=== PATIENT | female | born 1960 | race Caucasian/White ===

== ENCOUNTER 2019-06-05 07:01 | Inpatient (IN) ==
[2019-05-31 13:03] LABS: Appearance,Urine CLEAR; Bacteria,Urine FEW /hpf (0); Bilirubin,Urine NEG (NEG); Color,Urine YELLOW; Culture Indicated,Urine YES; Glucose,Urine (UA) NEGATIVE (NEG); Ketones,Urine NEG (NEG); Leukocyte Esterase,Urine 25 /uL (NEG); Mucus,Urine FEW /hpf (0); Nitrate,Urine NEG (NEG); Protein,Urine NEG (NEG); Specific Gravity,Urine 1.008 (1.000-1.035); Urine Blood NEG mg/dL (<0.03); Urine Broad Cast 1 /lpf (0); Urine Hyaline Cast 12 /lpf (0-2); Urine RBC 1 /hpf (0-1); Urine Squamous Epithelial Cell < 1 /hpf (0-4); Urine Transitional Epi Cells < 1 /hpf (0-2); Urine WBC 3 /hpf (0-4); Urobilinogen,Urine NEG (NEG)
[2019-05-31 16:46] LABS: Basophils # (Auto) 0.03 K/mcL (0.00-0.30); Basophils % (Auto) 0.3 % (0.0-2.0); Eosinophils # (Auto) 0.09 K/mcL (0.00-0.70); Eosinophils % (Auto) 0.9 % (0.0-7.0); Granulocytes % (Auto) 65.5 % (38.0-78.0); Hematocrit 43.7 % (34.1-44.9); Hemoglobin 14.6 g/dL (11.2-15.7); Lymphocytes # (Auto) 2.67 K/mcL (1.50-4.80); Lymphocytes % (Auto) 26.6 % (15.5-49.0); Mean Cell Volume 90.3 fL (80.0-100.0); Mean Corpuscular HGB Conc 33.4 g/dL (31.0-36.0); Mean Platelet Volume 9.7 fL (7.4-10.4); Monocytes # (Auto) 0.67 K/mcL (0.10-0.90); Monocytes % (Auto) 6.7 % (1.0-12.0); Platelet Count 336 K/mcL (140-440); RBC 4.84 M/mcL (3.59-5.38); Red Cell Distribution Width 13.6 % (11.5-14.5); WBC 10.1 K/mcL (4.50-11.00)
[2019-05-31 16:54] LABS: Prothrombin Time 12.8 sec (11.9-14.5)
[2019-05-31 17:01] LABS: Blood Urea Nitrogen 19 mg/dl (6-20); Calcium 10.4 mg/dl (8.6-10.4); Carbon Dioxide 25 mmol/L (22-30); Chloride 94 mmol/L (96-108); Glomerular Filtration Rate 70; Glucose 133 mg/dL (70-105)
[2019-05-31 17:42] LABS: Estimated Average Glucose(eAG) 143 mg/dL; Hemoglobin A1C 6.6 % HGB (4.0-6.0)
[~2019-06-05 07:01] MED LIST: CELECOXIB 200 MG CAPSULE PO SCH; GABAPENTIN 300 MG CAPSULE PO SCH; IPRATROPIUM/ALBUTEROL 3 ML AMPUL.NEB NEB PRN; SCOPOLAMINE 1 PATCH PATCH TOPICAL PRN; ceFAZolin 2 GM in DEXTROSE 5% IN WATER 50 ML IV SCH; oxyCODONE 10 MG TAB.ER.12H PO SCH
[2019-06-05] MEDS ORDERED: GENTAMICIN SULFATE 800 MG/20 ML VIAL IR ONE (07:11)
[2019-06-05] MEDS ORDERED: DEXAMETHASONE 10 MG/ML VIAL IV ONE (09:35)
[2019-06-05] MEDS ORDERED: PROPOFOL 200 MG/20 ML VIAL IV ONE (09:35)
[2019-06-05] MEDS ORDERED: ROPIVACAINE HCL/PF 30 ML VIAL IJ ONE (09:35)
[2019-06-05] MEDS ORDERED: fentaNYL 100 MCG/2 ML VIAL IV ONE (09:35)
[2019-06-05] MEDS ORDERED: ePHEDrine 50 MG/ML AMPUL IV ONE (09:35)
[2019-06-05] MEDS ORDERED: SUCCINYLCHOLINE 20 MG/ML ML IV ONE (09:35)
[2019-06-05] MEDS ORDERED: MIDAZOLAM 2 MG/2 ML VIAL IV ONE (09:35)
[2019-06-05] MEDS ORDERED: TRANEXAMIC ACID 1,000 MG/10 ML VIAL IV ONE (09:35)
[2019-06-05] MEDS ORDERED: LIDOCAINE HCL/PF 100 MG/5 ML SYRINGE IV ONE (09:35)
[2019-06-05] MEDS ORDERED: ONDANSETRON 4 MG/2 ML VIAL IV ONE (09:35)
--- NOTE | 2019-06-05 11:06 | Brief Operative Note ---
Date of procedure: 06/05/19 Pre-op diagnosis: left hip osteoarthritis Post-op diagnosis: same Procedure: left total knee arthroplasty Grafts/Implants: Yes Anesthesia: GETA, regional Complications: none Surgeon: Landon Devi Clicking Machine Operator: Emma Flores Estimated blood loss (cc): 200 Specimens Removed/Pathology: none sent Condition: stable Disposition: PACU
[2019-06-05] MEDS ORDERED: METOLAZONE 2.5 MG TABLET PO PRN (11:07)
[2019-06-05] MEDS ORDERED: TORSEMIDE 10 MG TABLET PO PRN (11:07)
[2019-06-05] MEDS ORDERED: POTASSIUM CHLORIDE 20 MEQ TABLET PO PRN (11:07)
--- NOTE | 2019-06-05 11:07 | Discharge Summary ---
Ortho Discharge - [facility] - Patient Instructions Diet: Regular Diet Activity: ambulate with assistive device, weight bearing as tolerated Total Hip Protocol: Follow activity instructions as provided by Physical Therapy. Dressing Care: May shower in 2 days - Follow Up Plan Disposition: Xfer SNF Prognosis: Good Rehab Potential: Good I certify that the patient requires SNF services: Yes Overall status at discharge: patient is progressing back to baseline
[2019-06-05] MEDS ORDERED: POLYETHYLENE GLYCOL 3350 17 GM PACKET PO PRN (11:08)
[2019-06-05] MEDS ORDERED: BENZOCAINE/MENTHOL 1 LOZENGE PO PRN ×2 (11:08→11:19)
[2019-06-05] MEDS ORDERED: TRANEXAMIC ACID 1,000 MG/10 ML VIAL IV SCH (11:08)
[2019-06-05] MEDS ORDERED: FLEETS ADULT ENEMA PR PRN (11:08)
[2019-06-05] MEDS ORDERED: ACETAMINOPHEN 325 MG TABLET PO PRN (11:08)
[2019-06-05] MEDS ORDERED: BISACODYL 10 MG SUPP.RECT PR PRN (11:08)
[2019-06-05] MEDS ORDERED: ONDANSETRON 4 MG ODT TABLET SL PRN (11:08)
[2019-06-05] MEDS ORDERED: ONDANSETRON 4 MG/2 ML VIAL IV PRN ×2 (11:08→11:19)
[2019-06-05] MEDS ORDERED: MAGNESIUM HYDROXIDE 30 ML ORAL.SUSP PO PRN (11:08)
[2019-06-05] MEDS ORDERED: LABETALOL 5 MG/ML ML IV PRN (11:19)
[2019-06-05] MEDS ORDERED: NALOXONE HCL 0.4 MG/ML VIAL IV PRN (11:19)
[2019-06-05] MEDS ORDERED: FLUMAZENIL 0.1 MG/ML ML IV PRN (11:19)
[2019-06-05] MEDS ORDERED: METHOCARBAMOL 1,000 MG/10 ML VIAL IV PRN (11:19)
[2019-06-05] MEDS ORDERED: IPRATROPIUM/ALBUTEROL 3 ML AMPUL.NEB NEB PRN (11:19)
[2019-06-05] MEDS ORDERED: LACTATED RINGERS 250 ML IV PRN (11:19)
[2019-06-05] MEDS ORDERED: ACETAMINOPHEN 1,000 MG/100 ML BOTTLE IV ONE (11:19)
[2019-06-05] MEDS ORDERED: METOPROLOL TARTRATE 5 MG/5 ML VIAL IV PRN (11:19)
[2019-06-05] MEDS ORDERED: LACTATED RINGERS 1,000 ML IV SCH (11:30)
--- NOTE | 2019-06-05 11:40 | Operative Note ---
DATE OF OPERATION: 06/05/2019 PREOPERATIVE DIAGNOSIS: Degenerative joint disease, left hip. POSTOPERATIVE DIAGNOSIS: Degenerative joint disease, left hip. PROCEDURE: Left total hip arthroplasty. SURGEON: Kana Devi M.D. ELECTRONIC INTELLIGENCE OFFICER SURGEON: Adelaida Russo PA-C. The PA's assistance was required for the safe and efficient completion of the entire case. This provider's expertise and technical skill were required throughout the case. The PA assisted with preoperative coordination, intraoperative retraction, wound closure, dressing and splint application, as well as postoperative documentation and care coordination. ANESTHESIA: Spinal with LMA assist. ESTIMATED BLOOD LOSS: 200 mL. COMPLICATIONS: None noted. SPECIMENS REMOVED: None. DRAINS: None. IMPLANTS: DePuy [place] Hole Eliminator PS; DePuy Bryan Gription acetabular shell 52 mm diameter; DePuy Biolox delta ceramic femoral head +8.5, 36 mm diameter; DePuy femoral stem Actis Duofix hip prosthesis cementless size 4, standard collar; DePuy Bryan Altrx polyethylene acetabular liner, neutral, 36 x 52. INDICATIONS: The patient has had a longstanding history of worsening pain in the hip that has failed conservative treatment. Radiographs have confirmed advanced degenerative joint disease. After a long discussion about treatment options, the patient elected to proceed with a hip arthroplasty. The risks and benefits were discussed with the patient in detail including, but not limited to, the risks of anesthesia, problems with the heart or lungs related to anesthesia, infection, compromise or injury to the nerves and blood vessels, deep venous thrombosis, pulmonary embolism, pneumonia, continued pain after surgery, worsening pain or symptoms after surgery, swelling, loss of motion, instability, leg length discrepancy, and need for repeat surgery. DESCRIPTION OF PROCEDURE: The patient was seen in pre-anesthesia waiting room where all questions were answered and the correct side and site were identified and marked. The patient was then brought to the operating room and administered the anesthetic and given pre-operative antibiotics. A time-out was then called. The patient was placed in the lateral decubitus position with all prominences well-padded using the Bhanu frame and the extremity was prepped and draped in the usual sterile fashion. Anesthesia gave the patient 1 gm of tranexamic acid via an intravenous route. A standard posterior approach was made. We dissected through the skin and subcutaneous tissue to the deep fascia. The deep fascia was split in line with the incision and a Charnley retractor was placed. We exposed, tagged, and incised the short external rotators and piriformis tendon and retracted them posteriorly to help protect the sciatic nerve which was palpated throughout the case. We then performed a T-capsulotomy and tagged the capsule edges. Prior to dislocating the hip, we set a length and offset gauge from a Steinmann pin in the iliac wing to a mary on the greater trochanter. The hip was then dislocated and a femoral neck osteotomy was performed to the pre-surgical templated level off the lesser trochanter. The head was removed and sized. We next turned our attention to the acetabulum. Retractors were placed for optimal visualization. A complete labral excision was performed. The capsule was preserved for later closure. We began reaming using anatomic landmarks with the DePuy Bryan acetabular system. We medialized the cup and reamed up to provide good fill and coverage of the trial. When the trial was stable and appropriately positioned with approximately 20 degrees of anteversion and 45 degrees of abduction, we impacted the DePuy Bryan cup and placed a cancellous screw in the posterior-superior quadrant. Osteophytes were removed from around the shell. We placed the trial liner and turned our attention to the femur. We placed retractors for visualization, internally rotated the femur, and established intramedullary access. We broached using the DePuy Tri-Lock stem to a stable platform medial, lateral, and rotationally with the appropriate version. We then performed a calcar reaming off the broach. Trials were then placed and optimized for leg length and stability. We used the leg length and offset guide to confirm our trials. Best stability, length, and offset characteristics were obtained with these sizes. We removed all trials and impacted the polyethylene acetabular liner in a standard fashion after a thorough irrigation. We then impacted the femoral stem to its broached location and placed the head. Final reduction was performed. Again, good stability, leg length, and offset characteristics were noted. We irrigated with three liters of antibiotic saline. We closed the capsule with #2 FiberWire. We closed the fascia with a combination of #2 Stratafix and #0 Vicryl. We closed the subcutaneous tissue and skin in layers out to Dermabond on the skin. A sterile pressure dressing and abduction wedge was applied. All needle and sponge counts were correct. The patient was transferred to the recovery room in stable condition. TIA:[email or web address] Job ID: [id number] Doc ID: [id number] Kana Devi MD
[2019-06-05] MEDS: fentaNYL 100 MCG/2 ML VIAL IV PRN ×2 (11:54→12:15)
[2019-06-05] MEDS: LACTATED RINGERS 1,000 ML IV SCH ×2 (11:59→20:42)
[2019-06-05] MEDS: POTASSIUM CHLORIDE 20 MEQ TABLET PO SCH ×2 (12:58→17:19)
[2019-06-05] MEDS: GABAPENTIN 300 MG CAPSULE PO SCH ×2 (12:59→20:52)
--- NOTE | 2019-06-05 13:30 | XRay Report ---
CLINICAL INFORMATION: Post-Op Total Hip COMPARISON: Preoperative films 06/17/2015 FINDINGS: New left total hip prosthesis in near anatomic alignment. Older right total hip prosthesis remains in near-anatomic alignment. No osseous abnormality. Soft issue swelling over the surgical site seen - as expected IMPRESSION: Negative Interpreted and Authenticated by: Landon Smith 06/05/19
[2019-06-05] MEDS: VERAPAMIL HCL 80 MG TABLET PO SCH ×2 (15:33→20:53)
[2019-06-05] MEDS: 0.9 % SODIUM CHLORIDE 10 ML SYRINGE IV SCH ×2 (15:33→21:45)
[2019-06-05] MEDS: ceFAZolin 1 GM VIAL IV SCH (17:16)
[2019-06-05] MEDS: CARVEDILOL 6.25 MG TABLET PO SCH (17:19)
[2019-06-05] MEDS: CARVEDILOL 12.5 MG TABLET PO SCH (17:21)
[2019-06-05] MEDS: SPIRONOLACTONE 25 MG TABLET PO SCH (20:51)
[2019-06-05] MEDS: SENNOSIDES 1 TABLET PO SCH (20:52)
[2019-06-05] MEDS: TORSEMIDE 10 MG TABLET PO SCH (20:52)
[2019-06-05] MEDS: DOCUSATE SODIUM 100 MG CAPSULE PO SCH (20:53)
[2019-06-05] MEDS: DOFETILIDE 500 MCG PO SCH (20:53)
[2019-06-05] MEDS: ATORVASTATIN 20 MG TABLET PO SCH (20:53)
[2019-06-05] MEDS: APIXABAN 2.5 MG TABLET PO SCH (20:53)
[2019-06-05] MEDS ORDERED: ASPIRIN 325 MG ENTERIC COATED TABLET PO SCH (21:00)
[2019-06-06] MEDS: ceFAZolin 1 GM VIAL IV SCH (01:16)
[2019-06-06] MEDS: LACTATED RINGERS 1,000 ML IV SCH ×3 (03:33→23:25)
[2019-06-06] MEDS: 0.9 % SODIUM CHLORIDE 10 ML SYRINGE IV SCH ×3 (06:12→23:22)
[2019-06-06 07:34] LABS: Hematocrit 33.3 % (34.1-44.9); Hemoglobin 11.2 g/dL (11.2-15.7)
--- NOTE | 2019-06-06 08:05 | Orthopedic Progress Note ---
Subjective Patient information: Note initiated : 06/06/19 at 8:04 am Service Date, if different from initiated Date: [] Patient: Jessica Katz 58 y/o F admitted on 06/05/19 for Left Total Hip Arthroplasty Posterior. Chief Complaint: [] Interval history: doing well. pain under control. slow to mobilize Objective Vital signs: Vital Signs Temp Pulse Pulse Resp BP BP Pulse Ox 06/06/19 07:13 97.3 F 67 16 115/58 97 06/06/19 04:10 97.9 F 65 16 108/57 97 06/05/19 23:42 98.7 F 65 16 107/56 95 06/05/19 19:18 98.3 F 71 14 119/55 97 06/05/19 16:25 98.5 F 70 18 95/55 93 06/05/19 15:32 66 95/55 95 06/05/19 14:01 61 98/47 91 06/05/19 13:35 64 87/47 90 06/05/19 13:17 60 92/47 95 06/05/19 13:02 61 91/50 95 06/05/19 12:47 60 90/53 94 06/05/19 12:31 60 95/47 92 06/05/19 12:20 98.6 F 61 15 105/44 96 06/05/19 12:10 62 12 100/44 96 06/05/19 11:55 64 14 114/46 96 06/05/19 11:50 64 17 100/48 96 06/05/19 11:45 65 11 L 114/58 95 06/05/19 11:42 98.8 F 67 67 12 118/54 95 Intake and Output 06/05/19 06/06/19 06/06/19 21:59 05:59 13:59 Intake Total 2340 500 Output Total 300 1000 Balance 2040 -500 Intake: IV 1000 Lactated Ringers 1,000 ml @ 125 1000 mls/hr IV .Q8H [facility] Rx#: [id number] Oral 1340 500 Output: Void Amount 300 1000 Other: Meal Dinner Percent of Meal Consumed 100% Feeding Ability Independent Urine Appearance Clear Urine Color Dark Yellow Dark Yellow Urine Odor Normal Normal Weight 218 lb 3.2 oz Intake & Output: Intake & Output 06/05/19 06/06/19 06/06/19 21:59 05:59 13:59 Intake Total 2340 500 Output Total 300 1000 Balance 2040 -500 Weight 218 lb 3.2 oz Intake: IV 1000 Lactated Ringers 1,000 ml @ 125 1000 mls/hr IV .Q8H [facility] Rx#: [id number] Oral 1340 500 Output: Void Amount 300 1000 Other: Meal Dinner Percent of Meal Consumed 100% Feeding Ability Independent Urine Appearance Clear Urine Color Dark Yellow Dark Yellow Urine Odor Normal Normal Incision: Yes healing Incision clean and dry: Yes Dressing: Yes clean, Yes dry, Yes intact Weight bearing status: full Neurological exam IM: No abnormal gait, Yes alert, Yes oriented X3, Yes motor sensory intact, Yes neurovascular intact Extremities exam IM: No calf tenderness, Yes Foot pink and warm, Yes neurova scular intact - Labs CBC & BMP: 06/06/19 05:25 05/31/19 11:11 Labs: Orthopedic Labs 05/31/19 11:11 PT 12.8 INR 1.0 06/06/19 05/31/19 05:25 11:12 Hgb 11.2 14.6 Hct 33.3 L 43.7 Assessment and Plan (1) Hip osteoarthritis pod 1 s/p steve wbat pain control dvt prophylaxis d/c planning Status: Acute
[2019-06-06] MEDS: POTASSIUM CHLORIDE 20 MEQ TABLET PO SCH ×3 (08:09→18:09)
[2019-06-06] MEDS: CARVEDILOL 12.5 MG TABLET PO SCH ×2 (08:10→18:09)
[2019-06-06] MEDS: CARVEDILOL 6.25 MG TABLET PO SCH ×2 (08:11→18:09)
[2019-06-06] MEDS: MULTIVIT,THER IRON,CA,FA & MIN 1 TABLET PO SCH (08:12)
[2019-06-06] MEDS: DOCUSATE SODIUM 100 MG CAPSULE PO SCH ×2 (08:12→22:23)
[2019-06-06] MEDS: APIXABAN 2.5 MG TABLET PO SCH ×2 (08:12→22:22)
[2019-06-06] MEDS: GABAPENTIN 300 MG CAPSULE PO SCH ×3 (08:12→22:21)
[2019-06-06] MEDS: MAGNESIUM OXIDE 400 MG TABLET PO SCH (08:13)
[2019-06-06] MEDS: TORSEMIDE 10 MG TABLET PO SCH ×2 (08:13→22:22)
[2019-06-06] MEDS: LOSARTAN 25 MG TABLET PO SCH (08:13)
[2019-06-06] MEDS: SPIRONOLACTONE 25 MG TABLET PO SCH ×2 (08:14→22:23)
[2019-06-06] MEDS: VERAPAMIL HCL 80 MG TABLET PO SCH ×3 (08:15→22:24)
[2019-06-06] MEDS: DOFETILIDE 500 MCG PO SCH ×2 (09:40→22:24)
[2019-06-06] MEDS: METOLAZONE 2.5 MG TABLET PO SCH (11:10)
[2019-06-06] MEDS: METHOCARBAMOL 750 MG TABLET PO PRN ×2 (13:53→22:38)
[2019-06-06] MEDS: ATORVASTATIN 20 MG TABLET PO SCH (22:21)
[2019-06-06] MEDS: SENNOSIDES 1 TABLET PO SCH (22:22)
[2019-06-07] MEDS: HYDROcodone/APAP 10/325MG TABLET PO PRN ×4 (02:05→21:18)
[2019-06-07] MEDS: LACTATED RINGERS 1,000 ML IV SCH ×2 (04:44→12:09)
[2019-06-07] MEDS: 0.9 % SODIUM CHLORIDE 10 ML SYRINGE IV SCH ×2 (04:45→14:35)
--- NOTE | 2019-06-07 06:14 | Orthopedic Progress Note ---
Subjective Patient information: Note initiated : 06/07/19 at 6:13 am Service Date, if different from initiated Date: [] Patient: Jessica Katz 58 y/o F admitted on 06/05/19 for Left Total Hip Arthroplasty Posterior. Chief Complaint: [] Interval history: increase in pain yesterday, difficulty ambulating, upper leg swelled Objective Vital signs: Vital Signs Temp Pulse Resp BP Pulse Ox 06/07/19 02:36 99.3 F H 66 16 91/51 98 06/06/19 22:55 99.0 F 68 16 96/53 94 06/06/19 19:33 98.8 F 68 16 107/53 98 06/06/19 16:38 97.9 F 61 16 106/58 97 06/06/19 13:21 97.6 F 72 16 104/63 97 06/06/19 07:13 97.3 F 67 16 115/58 97 Intake and Output 06/06/19 06/07/19 06/07/19 21:59 05:59 13:59 Intake Total 1940 950 Output Total 1200 1900 Balance 740 -950 Intake: Oral 1940 950 Output: Void Amount 1200 1900 Other: Meal Dinner Percent of Meal Consumed 100% Urine Appearance Clear Urine Color Bright Yellow Urine Odor Normal Weight 219 lb Intake & Output: Intake & Output 06/06/19 06/07/19 06/07/19 21:59 05:59 13:59 Intake Total 1940 950 Output Total 1200 1900 Balance 740 -950 Weight 219 lb Intake: Oral 1940 950 Output: Void Amount 1200 1900 Other: Meal Dinner Percent of Meal Consumed 100% Urine Appearance Clear Urine Color Bright Yellow Urine Odor Normal Incision: Yes healing Incision clean and dry: Yes Dressing: Yes clean, Yes dry, Yes intact Weight bearing status: full Neurological exam IM: Yes abnormal gait, Yes alert, Yes oriented X3, Yes motor sensory intact, Yes neurovascular intact Extremities exam IM: No calf tenderness, Yes joint swelling, Yes Foot pink and warm, Yes neurovascular intact - Labs CBC & BMP: 06/06/19 05:25 05/31/19 11:11 Labs: Orthopedic Labs 05/31/19 11:11 PT 12.8 INR 1.0 06/07/19 06/06/19 05/31/19 05:30 05:25 11:12 Hgb Pending 11.2 14.6 Hct Pending 33.3 L 43.7 Assessment and Plan (1) Hip osteoarthritis pod 2 s/p steve wbat pain control will get xray hip just to make sure no change dvt prophylaxis d/c planning Status: Acute
[2019-06-07 06:30] LABS: Hematocrit 32.6 % (34.1-44.9); Hemoglobin 11.1 g/dL (11.2-15.7)
[2019-06-07] MEDS: APIXABAN 2.5 MG TABLET PO SCH ×2 (08:08→21:20)
[2019-06-07] MEDS: MULTIVIT,THER IRON,CA,FA & MIN 1 TABLET PO SCH (08:09)
[2019-06-07] MEDS: CARVEDILOL 6.25 MG TABLET PO SCH ×2 (08:09→17:08)
[2019-06-07] MEDS: MAGNESIUM OXIDE 400 MG TABLET PO SCH (08:09)
[2019-06-07] MEDS: CARVEDILOL 12.5 MG TABLET PO SCH ×2 (08:09→17:08)
[2019-06-07] MEDS: LOSARTAN 25 MG TABLET PO SCH (08:09)
[2019-06-07] MEDS: TORSEMIDE 10 MG TABLET PO SCH ×2 (08:10→21:17)
[2019-06-07] MEDS: GABAPENTIN 300 MG CAPSULE PO SCH ×3 (08:10→21:18)
[2019-06-07] MEDS: DOCUSATE SODIUM 100 MG CAPSULE PO SCH ×2 (08:10→21:20)
[2019-06-07] MEDS: POTASSIUM CHLORIDE 20 MEQ TABLET PO SCH ×3 (08:10→17:08)
[2019-06-07] MEDS: VERAPAMIL HCL 80 MG TABLET PO SCH ×3 (08:11→21:20)
[2019-06-07] MEDS: DOFETILIDE 500 MCG PO SCH ×2 (08:11→21:20)
[2019-06-07] MEDS: SPIRONOLACTONE 25 MG TABLET PO SCH ×2 (08:11→21:18)
[2019-06-07] MEDS: METHOCARBAMOL 750 MG TABLET PO PRN ×2 (08:21→15:02)
--- NOTE | 2019-06-07 09:06 | XRay Report ---
CLINICAL INFORMATION: increase pain after surgery COMPARISON: Postoperative plain films 06/05/2019 FINDINGS: Bilateral total hip prostheses remain in stable alignment. A small portion of the ischium, inferior to the prosthetic left acetabulum, appears to been resected. No other osseous abnormality. Soft tissue swelling over the surgical site seen as expected. IMPRESSION: Total hip prostheses remain in near-anatomic alignment. Interpreted and Authenticated by: Landon Smith 06/07/19
[2019-06-07] MEDS: SENNOSIDES 1 TABLET PO SCH (21:18)
[2019-06-07] MEDS: ATORVASTATIN 20 MG TABLET PO SCH (21:20)
[2019-06-08] MEDS: LACTATED RINGERS 1,000 ML IV SCH ×2 (02:07→04:03)
[2019-06-08] MEDS: 0.9 % SODIUM CHLORIDE 10 ML SYRINGE IV SCH ×2 (02:07→04:04)
[2019-06-08] MEDS: METHOCARBAMOL 750 MG TABLET PO PRN ×2 (02:15→10:16)
[2019-06-08] MEDS: HYDROcodone/APAP 10/325MG TABLET PO PRN ×3 (02:16→10:16)
[2019-06-08 06:43] LABS: Hematocrit 29.7 % (34.1-44.9)
--- NOTE | 2019-06-08 07:45 | Orthopedic Progress Note ---
Subjective Patient information: Note initiated : 06/08/19 at 7:37 am Service Date, if different from initiated Date: [] Patient: Jessica Katz 58 y/o F admitted on 06/05/19 for Left Total Hip Arthroplasty Posterior. Chief Complaint: [] Interval history: doing better today. pain under control Objective Vital signs: Vital Signs Temp Pulse Resp BP BP Pulse Ox 06/08/19 04:00 97.4 F 63 16 98/55 97 06/08/19 00:00 98.3 F 61 14 89/50 94 06/07/19 20:00 99.2 F H 65 14 102/55 95 06/07/19 16:52 98.2 F 65 16 102/55 96 06/07/19 15:00 64 06/07/19 11:56 98.5 F 64 16 106/64 96 06/07/19 11:00 64 06/07/19 09:00 65 16 95 Intake and Output 06/07/19 06/08/19 06/08/19 21:59 05:59 13:59 Intake Total 800 1600 Output Total 450 1450 Balance 350 150 Intake: Oral 800 1600 Output: Void Amount 450 1450 Other: Urine Appearance Clear Clear Urine Color Pale Dark Yellow Urine Odor Normal Normal Intake & Output: Intake & Output 06/07/19 06/08/19 06/08/19 21:59 05:59 13:59 Intake Total 800 1600 Output Total 450 1450 Balance 350 150 Intake: Oral 800 1600 Output: Void Amount 450 1450 Other: Urine Appearance Clear Clear Urine Color Pale Dark Yellow Urine Odor Normal Normal Incision: Yes healing Incision clean and dry: Yes Dressing: Yes clean, Yes dry, Yes intact Weight bearing status: full Neurological exam IM: Yes abnormal gait, Yes alert, Yes oriented X3, Yes motor sensory intact, Yes neurovascular intact Extremities exam IM: No calf tenderness, Yes Foot pink and warm, Yes neurovascular intact - Labs CBC & BMP: 06/08/19 05:35 05/31/19 11:11 Labs: Orthopedic Labs 05/31/19 11:11 PT 12.8 INR 1.0 06/08/19 06/07/19 06/06/19 05:35 05:30 05:25 Hgb 10.0 L 11.1 L 11.2 Hct 29.7 L 32.6 L 33.3 L 05/31/19 11:12 Hgb 14.6 Hct 43.7 Assessment and Plan (1) Hip osteoarthritis pod 3 s/p steve wbat pain control dvt prophylaxis d/c planning - plan snf today Status: Acute
[2019-06-08] MEDS: CARVEDILOL 6.25 MG TABLET PO SCH (09:06)
[2019-06-08] MEDS: CARVEDILOL 12.5 MG TABLET PO SCH (09:07)
[2019-06-08] MEDS: POTASSIUM CHLORIDE 20 MEQ TABLET PO SCH (09:09)
[2019-06-08] MEDS: SPIRONOLACTONE 25 MG TABLET PO SCH (09:11)
[2019-06-08] MEDS: VERAPAMIL HCL 80 MG TABLET PO SCH (09:13)
[2019-06-08] MEDS: DOCUSATE SODIUM 100 MG CAPSULE PO SCH (09:13)
[2019-06-08] MEDS: LOSARTAN 25 MG TABLET PO SCH (09:14)
[2019-06-08] MEDS: TORSEMIDE 10 MG TABLET PO SCH (09:16)
[2019-06-08] MEDS: APIXABAN 2.5 MG TABLET PO SCH (09:17)
[2019-06-08] MEDS: MAGNESIUM OXIDE 400 MG TABLET PO SCH (09:18)
[2019-06-08] MEDS: MULTIVIT,THER IRON,CA,FA & MIN 1 TABLET PO SCH (09:18)
[2019-06-08] MEDS: GABAPENTIN 300 MG CAPSULE PO SCH (09:19)
[2019-06-08] MEDS: DOFETILIDE 500 MCG PO SCH (09:20)
[2019-06-08] MEDS: METOLAZONE 2.5 MG TABLET PO SCH (11:00)
== END 2019-06-08 11:20 | DRG 470 ==
LOC: MEDSUR 07:01
PROVIDERS: ADMIT Orthopaedic Surgery Sports Medicine; ATTEND Orthopaedic Surgery Sports Medicine